=== PATIENT | female | born 1985 | race African-American/Black ===

== ENCOUNTER 2023-11-28 17:08 | Emergency (ER) | payer SELFPAY ==
[~2023-11-28] VITALS: Ht 157.5 cm; Wt 69.0 kg
[2023-11-28 17:14] VITALS: O2SAT 99
[2023-11-28 19:08] LABS: CLARITY URINE CLEAR (CLEAR); COLOR URINE YELLOW (YELLOW); GLUCOSE URINE NEGATIVE (NEGATIVE); KETONES URINE NEGATIVE (NEGATIVE); LEUKOCYTE ESTERASE URINE 2+ (NEGATIVE); NITRITE URINE NEGATIVE (NEGATIVE); OCCULT BLOOD URINE 1+ (NEGATIVE); PROTEIN URINE NEGATIVE (NEGATIVE); SPECIFIC GRAVITY URINE 1.021 (1.005-1.030)
[2023-11-28 19:45] LABS: BACTERIA URINE 2+; SQUAMOUS EPITHELIAL CELL URINE 1+ /lpf (RARE/1+)
[2023-11-28] MEDS ORDERED: DOXY100C74 MT (20:19)
[2023-11-28] MEDS: DOXYCYCLINE HYCLATE 100MG CAPSULE PO ONE (20:44)
[2023-11-28] MEDS: CEFTRIAXONE SODIUM 500MG VIAL IM ONE (20:44)
[2023-11-28 21:03] VITALS: BP 159/98; PULSE 76; RESP 19; TEMP 36.55848; O2SAT 100
[2023-12-01 04:08] LABS: CHLAMYDIA TRACHOMATIS NAA Negative (Negative); NEISSERIA GONORRHOEAE NAA Negative (Negative)
== END 2023-11-28 21:09 | disposition home or self-care (01) ==
LOC: ER 17:08
DX: Z20.2 Contact with and (suspected) exposure to infections with a predominantly sexual mode of transmission (principal)
CPT/HCPCS: 99283; 87491; 87591; 81003; 81025; 96372; J0696